=== PATIENT | male | born 2000 | race Caucasian/White ===

== ENCOUNTER 2018-12-18 21:16 | Inpatient (IN) ==
[2018-12-18] MEDS ORDERED: SODIUM CHLORIDE 0.9% 1000ML 1,000 ML IV SCH (22:30)
--- NOTE | 2018-12-18 22:34 | XRay Report ---
XR chest 1V portable CLINICAL HISTORY: 18 years-old Male presenting with Pt c/o fever. TECHNIQUE: Portable supine AP view of the chest was obtained. COMPARISON: 05/18/2018. FINDINGS: Cardiomediastinal silhouette normal. Lungs and pleural spaces clear. Osseous structures normal. IMPRESSION: 1. No acute cardiopulmonary disease. Electronically signed by: Jean Elizabeth M.D. 12/18/2018 10:33 PM
[2018-12-18 22:48] LABS: Basophils # (auto) 0.03 K/uL (0-0.2); Basophils % (auto) 0.4 %; Eosinophils # (auto) 0.01 K/uL (0-0.5); Eosinophils % (auto) 0.1 %; Hematocrit (blood only) 44.7 % (42-52); Hemoglobin 15.9 g/dL (14.0-18.0); Immature Granulocytes # (auto) 0.03 K/uL (0.00-0.02); Immature Granulocytes % (auto) 0.4 %; Lymphocytes # (auto) 0.99 K/uL (1.2-3.4); Lymphocytes % (auto) 12.7 %; Mean Corpuscular Hgb Conc 35.6 g/dL (32-36); Mean Corpuscular Volume 84.5 fL (80-100); Mean Platelet Volume 10.1 fL (7.4-10.4); Monocytes # (auto) 1.54 K/uL (0.11-0.59); Monocytes % (auto) 19.7 %; Neutrophils # (auto) 5.21 K/uL (1.4-6.5); Neutrophils % (auto) 66.7 %; Platelet Count 238 K/uL (130-400); RDW Coefficient of Variation 12.7 % (11.5-14.5); RDW Standard Deviation 38.8 fL (36.4-46.3); Red Blood Count 5.29 M/uL (4.7-6.1); White Blood Count 7.81 K/uL (4.8-10.8)
[2018-12-18] MEDS ORDERED: ACETAMINOPHEN 500 MG TAB PO STA (22:58)
[2018-12-18 23:09] LABS: BUN Creatinine Ratio 11.7 (10-20); Calcium 9.4 mg/dl (8.5-10.1); Creatinine Clr Calc Pharmacy 115.5 ml/min; Est GFR (African American) 123.5; Est GFR (Non-African American) 106.6
[2018-12-18] MEDS ORDERED: OSELTAMIVIR PHOSPHATE 75 MG CAP PO STA (23:15)
[2018-12-18 23:16] LABS: Acetaminophen < 2 ug/ml (10-30); Salicylate 2.7 mg/dl (2.8-20)
[2018-12-18 23:20] LABS: Bilirubin,Total 0.4 mg/dl (0.2-1)
[2018-12-18] MEDS ORDERED: ACETAMINOPHEN SOLN 500 MG/15.62 ML UDP PO PRN (23:26)
[2018-12-18 23:36] LABS: Appearance Urine Clear (Clear); Bilirubin Urine Negative (Negative); Blood Urine Negative (Negative); Color Urine Yellow; Glucose Urine UA Negative (Negative); Ketones Urine Negative (Negative); Leukocyte Esterase Urine Negative (Negative); Nitrite Urine Negative (Negative); Protein Urine Negative (Negative); Specific Gravity Urine 1.022 (1.000-1.030); Urobilinogen Urine Negative (Negative); pH Urine 5.5 (4.5-7.5)
[2018-12-18 23:56] LABS: Amphetamines+Metham, Urine Pos (Neg); Barbiturates, Urine Neg (Neg); Benzodiazepine, Urine Neg (Neg); Cocaine, Urine Neg (Neg); MDMA (Ecstacy), Urine Neg (Neg); Methadone, Urine Neg (Neg); Opiate, Urine Neg (Neg); Phencyclidine, Urine Neg (Neg)
[2018-12-19] MEDS ORDERED: LORazepam 1 MG TAB SL STA (00:04)
[2018-12-19] MEDS ORDERED: HALOPERIDOL 5 MG TAB PO STA (00:04)
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
--- NOTE | 2018-12-19 05:41 | Emergency Department Note ---
ED Visit Note ED Physician Sign Out Note: 18 yr old male arrives for evaluation of suicidal ideation and threats as well as a request for detox from his Methamphetamine usage. Initially evaluated by Dr Lewis. Flu positive but felt to be medically clear. He was sedated earlier in the evening. Already received tamiflu. He sleeping stable over night. Does not appear to require LP but given obtundation will defer to earlier evaluations by Dr Lewis. No ability to get placement overnight and thus was signed out to Dr Tom pending further mental health evaluation. Juan R Nugent MD
[2018-12-19] MEDS ORDERED: SODIUM CHLORIDE 0.65% NA SOLN 45 ML (OCEAN) PRN (11:57)
[2018-12-19] MEDS ORDERED: MAGNESIUM HYDROXIDE SUSP 30 ML UDC PO PRN (11:57)
[2018-12-19] MEDS ORDERED: BISMUTH SUBSALICYLATE PER ML OMNICELL CHARGE PO PRN (11:57)
[2018-12-19] MEDS ORDERED: ACETAMINOPHEN 325 MG TAB PO PRN (11:57)
[2018-12-19] MEDS ORDERED: ALUMINUM/MAGNESIUM SUSP 30 ML UDC PO PRN (11:57)
--- NOTE | 2018-12-19 14:37 | Emergency Department Note ---
Entered by Allison Morataya acting as a scribe for Luke Tom DO ED Visit Note I assumed care from Dr. Nugent at the change of shift. 0942: I reviewed the patient's case with Dr. Syed, [facility] psychiatrist. Placement will be attempted, and she will evaluate the patient. Patient remained calm while in the ER. Patient was accepted to the hospital 3 S. on 301. The scribe's documentation has been prepared under my direction and personally reviewed by me in its entirety. I confirm that the note above accurately re flects all work, treatment, procedures, and medical decision making performed by me.
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
[2018-12-19] MEDS ORDERED: IBUPROFEN 600 MG TAB PO PRN (15:06)
[2018-12-19] MEDS: OSELTAMIVIR PHOSPHATE 75 MG CAP PO SCH (21:56)
[2018-12-20] MEDS: OSELTAMIVIR PHOSPHATE 75 MG CAP PO SCH ×2 (08:52→20:28)
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
[2018-12-21] MEDS: OSELTAMIVIR PHOSPHATE 75 MG CAP PO SCH ×2 (09:40→21:15)
--- NOTE | 2018-12-21 13:14 | Psychiatric Progress Note ---
Date of Service December 21, 2018 Impression / Recommendations Impression Pt has been participating in treatment and appears to be adjusting to the milieu. Droplet precautions discontinued as he is now asymptomatic. Today, patient denies homicidality or suicidality and reports his mood is "absolutely good." Will need to coordination discharge planning, which includes housing arrangements. Family meeting scheduled for 12/23, and will discuss housing and any other concerns with father. Given patient's impulsivity with his emotions, and statements of homicidality and suicidality made prior to admission - it is necessary that patient in inpatient treatment until discharge plans can be discussed, as conversation with father has high likelihood of destabilizing the patient and he remains at risk of harm to himself or others during this time. (1) Mood disorder: 12/19 -Gather supplemental information from family - Q 15 min checks for safety - Patient can attend group and individual counseling only if wearing a mask and using good hand hygiene - Family meeting if indicated - Assist the patient to explore healthy coping strategies - Does no meet criteria for major depression and so no recommendations for medications - Safety planning - Aftercare planning 12/20 -Differential includes major depression, substance-induced depression, personality disorder (antisocial traits). -Family meeting with father and grandfather. Reviewed recommendations with them that patient not have access to guns, and that as he has been involuntarily committed, he cannot own, purchase, or possess firearms in the [facility]. 12/21 - Continues to lack criteria to recommend medications - Focus will remain on aftercare and safety planning - Family meeting scheduled for Wednesday (2) Influenza A: 12/19 - MNPR - Airborne precautions - May be out of room if wearing mask and using good hand hygiene 12/20 -Continue symptomatic treatment with ibuprofen, acetaminophen, nasal spray, and Tamiflu. 12/21 - Not symptomatic today, protocol reviewed with clearance to discontinue droplet precautions (3) Methamphetamine abuse: 12/19 - Recommend abstinence - Recommend rehab which he is refusing at this time - Consider OP substance use treatment if willing 12/20 -Patient continues to refuse substance abuse treatment, maintaining that he does not have a problem. He is currently on probation, and if he will sign a release for his p.o., they should be contacted regarding his ongoing substance abuse and refusal of recommendations to get treatment. Inventory Assets Strengths: Has a place to live Needs: To abstain from abusable substances Risk Factors Assessment Male: Yes : Yes Do You Have Access To A Gun?: No Health Problems: Yes Mental Health Diagnoses: No Substance Use Disorders: Yes Previous Attempt: Yes Family History of Suicide: No Previous Psychiatric Hospitalization: No Smoker: Yes Protective Factors Assessment : No Responsible for Young Children: No Employed: No (unemployed past 6 months) Stable Relationships: No Supportive Family: Yes Interval History Identifying Information EULALIA MEYERS is a 18-year-old single male who lives in [place] with his father, denies past psychiatric history, and was admitted to our unit on 12/19/2018 a 302 involuntary commitment after making suicidal and homicidal statements to his parents. His urine drug screen in the ER was positive for amphetamine/methamphetamine and marijuana, and he reported intranasal use of methamphetamine, and initially requested detox. Chief Complaint "I am absolutely good. I just found out I'll probably be leaving in a few days". Review of Systems Notes Constitutional: denies ongoing flu symptoms Cardiovascular: denied Respiratory: denied Gastrointestinal: denied Neurological: denied Psychiatric: denies symptoms other than stated above Total of at least 10 systems reviewed, pertinent positives as above and in HPI. Sleep Information Total Hours of Sleep: 10.75 Sleep Comments: pt given vistaril per rn. pt on q-15 minute checks Meal Information Percent Meal Consumed - Breakfast: 100 Percent Meal Consumed - Lunch: 100 Percent Meal Consumed - Dinner: 100 Subjective Subjective Patient was seen & assessed and interval progress reviewed with Treatment Team. Staff report that the patient is unsure about living arrangements following discharge, as it appears his desired plan is not necessarily agreed upon by his family. Pt is scheduled for a family meeting with his parents on 12/23. Pt was seen today to assess progress since admission. Pt states he is doing very well today, stating "it was a little weird being here at first, I wasn't happy, but I warmed up." Pt states that his mood has been generally stable and he denies SI. We discussed his desire for housing arrangements and he states, "I think I'm living with my dad so I can have access to my car and my cat." Pt is not particularly anxious about his family meeting, stating his is flexible with whatever his parent's recommendations or restrictions may be. Physically, he is feeling better with regard to flu symptoms. We received confirmation that droplet precautions can be discontinued and the patient states he is very pleased about this. Physical Exam Psychiatric Orientation: alert and cooperative Apperance: appropriately dressed and + disheveled (malodorous) Eye Contact: good eye contact Motor Behavior: no abnormal motor movements Speech: normal rate/rhythm/volume of speech Affect: euthymic affect Mood: no depressed mood and no anxious mood "absolutely good" Thought Process: goal directed thought process Thought Content: reality based without delusions Suicidal Thoughts: denies suicidal thoughts Homicidal Thoughts: denies homicidal thoughts Hallucinations: no auditory hallucinations and no visual hallucinations Cognition: recent memory grossly intact, remote memory grossly intact, attention grossly intact and language grossly intact Estimated Intelligence: average estimated intelligence Insight: + limited insight Judgement: + limited judgement Vital Signs (Past 24 Hours) Last Vital Signs Temp 36.6 C 12/21/18 06:49 Pulse 86 12/21/18 06:50 Resp 16 12/21/18 06:49 BP 120/78 12/21/18 06:50 Pulse Ox 97 12/19/18 16:35 Results & Data Current Inpatient Medications Current Inpatient Medications: Current Inpatient Medications Acetaminophen (Tylenol) 1,000 mg PO Q6H PRN PRN Reason: Fever Stop: 01/17/19 23:25 Acetaminophen (Tylenol) 650 mg PO Q4H PRN PRN Reason: Headache or Minor Fever Stop: 01/18/19 11:56 Al Hydrox/Mg Hydrox/Simethicone (Maalox) 30 ml PO Q4H PRN PRN Reason: GI Upset Stop: 01/18/19 11:56 Bismuth Subsalicylate (Kaopectate) 15 ml PO PRN PRN PRN Reason: Loose Stool Stop: 01/18/19 11:56 Hydroxyzine HCl (Vistaril) 25 mg PO Q4H PRN PRN Reason: Anxiety Stop: 01/18/19 11:56 Hydroxyzine HCl (Vistaril) 50 mg PO HSZ PRN PRN Reason: Insomnia Stop: 01/18/19 11:56 Last Admin: 12/19/18 22:47 Dose: 50 mg Documented by: Ibuprofen (Motrin) 600 mg PO Q6H PRN PRN Reason: pain/fever Stop: 01/18/19 15:05 Last Admin: 12/19/18 21:56 Dose: 600 mg Documented by: Magnesium Hydroxide (Milk Of Magnesia) 30 ml PO DAILY PRN PRN Reason: Heartburn Stop: 01/18/19 11:56 Oseltamivir Phosphate (Tamiflu) 75 mg PO BID ANGELINA; Protocol Stop: 12/24/18 20:59 Last Admin: 12/21/18 09:40 Dose: 75 mg Documented by: Sodium Chloride (Stark Nasal) 1 - 2 sprays NA PRN PRN PRN Reason: Nasal Dryness/Congestion Stop: 01/18/19 11:56 Post Discharge Appointments Primary Care Physician Name Of Family Doctor: Dr. Thomas Giordano Therapist Name of Therapist: None Correspondence Clerk Name of Correspondence Clerk: None CPT Code CPT Code 50169
[2018-12-21 18:53] LABS: Amphetamine Urine, Confirm 455 NG/ML (CUTOF=250); Marijuana Quant, GCMS Urine 42 NG/ML (CUTOFF=5)
[2018-12-22] MEDS: OSELTAMIVIR PHOSPHATE 75 MG CAP PO SCH ×2 (08:57→21:10)
--- NOTE | 2018-12-22 19:35 | Psychiatric Progress Note ---
Date of Service December 22, 2018 Impression / Recommendations Impression Pt continues superficial cooperation on the unit, though does not appear to be overly invested in treatment. Will continue MNPR due to ongoing flu symptomatology. Observed continued coughing on unit. Family meeting scheduled with father and grandfather tomorrow at 12:00. Barring any complications, discharge is likely, as patient is nearing the end of his 302 involuntary commitment. Given history of behaviors, ongoing treatment is necessary until aftercare and safety planning is completed during family meeting - especially as it is unclear where patient will be living at discharge. (1) Mood disorder: 12/19 -Gather supplemental information from family - Q 15 min checks for safety - Patient can attend group and individual counseling only if wearing a mask and using good hand hygiene - Family meeting if indicated - Assist the patient to explore healthy coping strategies - Does no meet criteria for major depression and so no recommendations for medications - Safety planning - Aftercare planning 12/20 -Differential includes major depression, substance-induced depression, personality disorder (antisocial traits). -Family meeting with father and grandfather. Reviewed recommendations with them that patient not have access to guns, and that as he has been involuntarily committed, he cannot own, purchase, or possess firearms in the state of [facility]. 12/21 - Continues to lack criteria to recommend medications - Focus will remain on aftercare and safety planning - Family meeting scheduled for Friday 12/22 - As above (2) Influenza A: 12/19 - MNPR - Airborne precautions - May be out of room if wearing mask and using good hand hygiene 12/20 -Continue symptomatic treatment with ibuprofen, acetaminophen, nasal spray, and Tamiflu. 12/21 - Not symptomatic today, protocol reviewed with clearance to discontinue droplet precautions 12/22 - Continue MNPR due to ongoing coughing/sneezing - Continue to encourage good hand hygiene (3) Methamphetamine abuse: 12/19 - Recommend abstinence - Recommend rehab which he is refusing at this time - Consider OP substance use treatment if willing 12/20 -Patient continues to refuse substance abuse treatment, maintaining that he does not have a problem. He is currently on probation, and if he will sign a release for his p.o., they should be contacted regarding his ongoing substance abuse and refusal of recommendations to get treatment. Inventory Assets Strengths: Has a place to live Needs: To abstain from abusable substances Risk Factors Assessment Male: Yes : Yes Do You Have Access To A Gun?: No Health Problems: Yes Mental Health Diagnoses: No Substance Use Disorders: Yes Previous Attempt: Yes Family History of Suicide: No Previous Psychiatric Hospitalization: No Smoker: Yes Protective Factors Assessment : No Responsible for Young Children: No Employed: No (unemployed past 6 months) Stable Relationships: No Supportive Family: Yes Interval History Identifying Information EULALIA MEYERS is a 18-year-old single male who lives in [place] with his father, denies past psychiatric history, and was admitted to our unit on 12/19/2018 a 302 involuntary commitment after making suicidal and homicidal statements to his parents. His urine drug screen in the ER was positive for amphetamine/methamphetamine and marijuana, and he reported intranasal use of methamphetamine, and initially requested detox. Chief Complaint "I'm feeling so good". Review of Systems Notes Constitutional: denied Cardiovascular: denied Respiratory: denied Gastrointestinal: denied Neurological: denied Psychiatric: denies symptoms other than stated above Total of at least 10 systems reviewed, pertinent positives as above and in HPI. Sleep Information Total Hours of Sleep: 7.25 Sleep Comments: pt given vistaril per rn. pt on q-15 minute checks Meal Information Percent Meal Consumed - Breakfast: 100 Percent Meal Consumed - Lunch: 100 Percent Meal Consumed - Dinner: 100 Subjective Subjective Patient was seen & assessed and interval progress reviewed with Nursing. Staff report the patient has continued to be superficially pleasant on the unit. Family meeting scheduled with his father and grandfather Wednesday at 12:00. 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 Pt was seen today to assess progress since admission. Pt states he is doing well. He has been attending groups, but states, "I've been bored." He denies suicidality and somewhat cynically states, "Never, I love my life!" Pt denies any present concerns or anxiety regarding his meeting tomorrow. He denies ongoing flu symptoms, though staff has observed continued coughing. Physical Exam Psychiatric Orientation: alert, oriented x 3 and cooperative Apperance: appropriately dressed and + disheveled (malodorous) Eye Contact: good eye contact Motor Behavior: steady gait and station and no abnormal motor movements Speech: normal rate/rhythm/volume of speech Affect: euthymic affect Mood: no depressed mood and no anxious mood "I'm so good" Thought Process: goal directed thought process and clear/coherent thought process Thought Content: reality based without delusions Suicidal Thoughts: denies suicidal thoughts Homicidal Thoughts: denies homicidal thoughts Hallucinations: no auditory hallucinations and no visual hallucinations Cognition: recent memory grossly intact, remote memory grossly intact, attention grossly intact and language grossly intact Estimated Intelligence: average estimated intelligence Insight: + fair insight Judgement: + fair judgement Vital Signs (Past 24 Hours) Last Vital Signs Temp 36.8 C 12/22/18 06:00 Pulse 71 12/22/18 06:00 Resp 16 12/22/18 06:00 BP 110/70 12/22/18 06:00 Pulse Ox 97 12/19/18 16:35 Results & Data Current Inpatient Medications Current Inpatient Medications: Current Inpatient Medications Acetaminophen (Tylenol) 1,000 mg PO Q6H PRN PRN Reason: Fever Stop: 01/17/19 23:25 Acetaminophen (Tylenol) 650 mg PO Q4H PRN PRN Reason: Headache or Minor Fever Stop: 01/18/19 11:56 Al Hydrox/Mg Hydrox/Simethicone (Maalox) 30 ml PO Q4H PRN PRN Reason: GI Upset Stop: 01/18/19 11:56 Bismuth Subsalicylate (Kaopectate) 15 ml PO PRN PRN PRN Reason: Loose Stool Stop: 01/18/19 11:56 Hydroxyzine HCl (Vistaril) 25 mg PO Q4H PRN PRN Reason: Anxiety Stop: 01/18/19 11:56 Hydroxyzine HCl (Vistaril) 50 mg PO HSZ PRN PRN Reason: Insomnia Stop: 01/18/19 11:56 Last Admin: 12/19/18 22:47 Dose: 50 mg Documented by: Ibuprofen (Motrin) 600 mg PO Q6H PRN PRN Reason: pain/fever Stop: 01/18/19 15:05 Last Admin: 12/19/18 21:56 Dose: 600 mg Documented by: Magnesium Hydroxide (Milk Of Magnesia) 30 ml PO DAILY PRN PRN Reason: Heartburn Stop: 01/18/19 11:56 Oseltamivir Phosphate (Tamiflu) 75 mg PO BID ANGELINA; Protocol Stop: 12/24/18 20:59 Last Admin: 12/22/18 08:57 Dose: 75 mg Documented by: Sodium Chloride ([place] Nasal) 1 - 2 sprays NA PRN PRN PRN Reason: Nasal Dryness/Congestion Stop: 01/18/19 11:56 Post Discharge Appointments Primary Care Physician Name Of Family Doctor: Dr. Thomas Giordano Psychiatrist Name of Psychiatrist: [facility] Date of Appointment with Psychiatrist: 12/26/18 Time of Appointment with Psychiatrist: 2:30 pm Psychiatric Appointment Comment: Intake appointment for Psychiatrist and Therapist with Constance Darden Name of Therapist: [facility] Pattern Clerk Name of Pattern Clerk: None CPT Code CPT Code 55672
[2018-12-23] MEDS: OSELTAMIVIR PHOSPHATE 75 MG CAP PO SCH (09:02)
--- NOTE | 2018-12-23 09:33 | Discharge Summary ---
Date of Service December 23, 2018 History of Present Illness The patient is a 18-year-old male who initially presented to the emergency department requesting drug rehab. He admits he has been smoking meth regularly. He later went on to deny that he wanted any help saying that it was his parents idea to come for help. Apparently the parents reported that he had been making suicidal and homicidal statements and they were concerned for his safety. A 302 petitioner statement was completed by his father saying that on December 16 he put a gun to his head and threatened to kill himself and his father, on December 17 threatened to kill everyone in the house and himself using a knife, on December 18 tried to OD on pills and threatened everyone in the home. While in the emergency department he was positive for influenza. Multiple referrals were made to other facilities as we did not have a bed at the time, but was denied. We had a bed come available today and he was admitted involuntarily. At the time I see the patient he is lying in bed with a mask on. He is alert and cooperative with the interview. He contends that he blacks out when he does drugs and "says stupid shift" like it making statements of homicidality and suicidality. He believes that the statements are impulsive, and related to untreated ADHD. He denies that he has been feeling depressed. He indicates that his sleep is "pretty good" getting 8 hours per night. His appetite is good and denies weight changes. He denies anxiety or worry. He denies self- injurious behaviors. He does endorse the fact that his thoughts go "way too fast" and he has difficulty completing tasks. He denies ever having had any auditory or visual hallucinations. He denies any discrete episodes of euphoric mood, sleeplessness or pleasure seeking behaviors that would be congruent with bipolar disorder. He admits that he has been smoking meth 2-3 times per week but last week did not have any. He smokes marijuana generally on the first of the month. He denies other drugs and UDS is positive for amphetamines and cannabis only. He does not believe he needs to be in the hospital, denying any mental health needs. He does not want to go to rehab for his substance use, and wants to get out as soon as possible. Physical Exam Psychiatric Orientation: oriented x 3 Apperance: appropriately groomed Eye Contact: + fair eye contact Motor Behavior: steady gait and station and no abnormal motor movements Speech: normal rate/rhythm/volume of speech Affect: euthymic affect "Good. Determined [to not use drugs]." Thought Content: reality based without delusions and + self deprecation Suicidal Thoughts: denies suicidal thoughts Homicidal Thoughts: denies homicidal thoughts Hallucinations: no auditory hallucinations Cognition: recent memory grossly intact and remote memory grossly intact Some ongoing issues with attention and concentration. Estimated Intelligence: + above average estimated intelligence Insight: + limited insight Judgement: + fair judgement Insists that he's "not addicted" to methamphetamine, despite daily use and continued use despite negative social and legal consequences. Vital Signs (Past 24 Hours) Last Vital Signs Temp 36.7 C 12/23/18 06:00 Pulse 64 12/23/18 07:16 Resp 16 12/23/18 06:00 BP 116/75 12/23/18 07:16 Pulse Ox 97 12/19/18 16:35 Principal Diagnosis Adjustment Disorder (complicated by amphetamine and marijuana abuse) Psychiatric Data During the course of hospitalization the patient was offered various modalities of psychiatric treatment including individual, group, activity and milieu therapies. The patient's participation initially was limited, but this time he became more interactive and his participation in therapy was more robust. The patient indicates that he learned several things in therapy, including ways of improving his self-esteem and learning better individual coping strategies. He is also able to connect to the relationship between low self-esteem, boredom, lack of occupation, and drug misuse. The patient basically identifies the admission as being "to detoxify me from methamphetamine," it continues to say that he does not believe that he is "addicted" to methamphetamine and that, for him, it is not "addictive." He continued to have difficulty with the concept of psychological addiction, and with the idea of addiction as being related to persistent use despite clear negative social, legal, familial, and vocational consequences. The patient repeatedly reported that he had simply said that he was suicidal (and homicidal" as a strategy to get his family "off [his] back," because he was physically ill with influenza and the family was insisting that he was simply experiencing withdrawal from methamphetamine and wanted him to get out of bed and help his uncle Coppersmith Apprentice a cow. He tells me that he was not genuinely suicidal, nor was he homicidalalthough he acknowledges being angry at his family for not believing him and trying to make him get out of bed when he was ill. (It was confirmed that he did, in fact, have influenza) patient said that the next day he had further arguments with his family regarding his use of methamphetamines and other drugs (primarily marijuana) and he was convinced to "get help." He had not anticipated admission, however. Nevertheless, he does say that he feels that his hospitalization was helpful. Further, the patient tells me that he is looking forward to beginning treatment with an outpatient counselor. His strategy to maintain abstinence is simply to avoid contact with the person that supplied him with methamphetamine, and he notes that that suppl ier lives some distance away from him in another county and he is unlikely to encounter him without it being intentional. Day of Discharge Assessment On the day of discharge, the patient describes his mood is "good," and rates it as "8 out of 10." He also reports that he feels hopeful and "determined." He later explained that "determined means I am determined not to use." The patient's affect is consistent with his mood. There is some inappropriate laughter, for example when telling me that he had threatened to "kill" his father, and he explains that he is laughing out of embarrassment. The patient's thought processes are tight and goal oriented. There is no evidence of any delusional material and the patient's thought content. The patient denies that he is experienced any perceptual disturbances, and there has been no evidence during the hospitalization to suggest response to internal stimuli. The patient also reports that he is not suicidal, has never been suicidal, and cannot imagine himself ever becoming suicidal. He does acknowledge that he frequently gets into physical altercations, but denies any homicidal ideation and attributes the fights to the fact that "people do not like me and I get picked on." The patient set several goals for the future, including participation in outpatient treatment, abstinence from drugs "to prove you wrong" and finding a job in order to keep himself more occupied. Transition of Care Transition Of Care Record: was reviewed with the patient Advance Directives Advance Directives Information Provided: Yes Advance Directives: No Mental Health Advance Directive: No Advance Directives on File: No Living Will: No Power of Wrapping Machine Helper: No Advance Directives Reason:: Declines as Mental Health Visit. Risk Factors Assessment Male: Yes : Yes Do You Have Access To A Gun?: No Health Problems: Yes Mental Health Diagnoses: No Substance Use Disorders: Yes Previous Attempt: Yes Previous Attempt; Highly Lethal: No Previous Attempt; Planned: No Previous Attempt; Didn't Tell Anyone: No Family History of Suicide: No Previous Psychiatric Hospitalization: No Smoker: Yes Protective Factors Assessment : No Responsible for Young Children: No Employed: No (unemployed past 6 months) Stable Relationships: No Supportive Family: Yes Tobacco Cessation at Discharge Tobacco Cessation Medication Prescribed at Discharge: Not Applicable/Non-Smoker Total Time Total Time Spent: Greater Than 30 Minutes Total Time Includes: Examination of the patient, Discharge Planning and Medication Reconciliation Discharge Data Consultations 12/19/18 07:44 Consult Psychiatry Stat Lab Results 12/18/18 12/18/18 12/18/18 22:30 22:33 22:33 WBC 7.81 RBC 5.29 Hgb 15.9 Hct 44.7 MCV 84.5 MCH 30.1 MCHC 35.6 RDW Std Deviation 38.8 RDW Coeff of [place] 12.7 Plt Count 238 MPV 10.1 Immature Gran % (Auto) 0.4 Neut % (Auto) 66.7 Lymph % (Auto) 12.7 [place] % (Auto) 19.7 Eos % (Auto) 0.1 Baso % (Auto) 0.4 Immature Gran # (Auto) 0.03 H Neut # (Auto) 5.21 Lymph # (Auto) 0.99 L [place] # (Auto) 1.54 H Eos # (Auto) 0.01 Baso # (Auto) 0.03 Sodium 133 L Potassium 4.0 Chloride 100 Carbon Dioxide 27 Anion Gap 6.0 BUN 12 Creatinine 1.01 Est Cr Clr Drug Dosing 115.5 Est GFR ( Amer) 123.5 Est GFR (Non-Af Amer) 106.6 BUN/Creatinine Ratio 11.7 Glucose 96 Calcium 9.4 Total Bilirubin 0.4 AST 40 H ALT 65 Alkaline Phosphatase 86 Total Protein 8.0 Albumin 4.0 Globulin 4.0 Albumin/Globulin Ratio 1.0 TSH 0.348 Urine Color Urine Appearance Urine pH Ur Specific [place] Urine Protein Urine Glucose (UA) Urine Ketones Urine Blood Urine Nitrite Urine Bilirubin Urine Urobilinogen Ur Leukocyte Esterase Salicylates Urine Opiates Screen Ur Methadone, Qual Acetaminophen Urine Barbiturates Ur Phencyclidine (PCP) U Amphetamines Confirm U Amphetamin/Meth Scrn U Methamphetamin Confrm MDMA (Ecstasy) Screen U Benzodiazepines Scrn Ur Cocaine Metabolite U Marijuana (THC) Screen U Marijuana THC Carboxy Ethyl Alcohol mg/dL Influenza Type A Ag Pos for Influ A A* Influenza Type B Ag Neg for Influ B 12/18/18 12/18/18 12/18/18 22:33 22:40 23:16 WBC RBC Hgb Hct MCV MCH MCHC RDW Std Deviation RDW Coeff of [place] Plt Count MPV Immature Gran % (Auto) Neut % (Auto) Lymph % (Auto) [place] % (Auto) Eos % (Auto) Baso % (Auto) Immature Gran # (Auto) Neut # (Auto) Lymph # (Auto) [place] # (Auto) Eos # (Auto) Baso # (Auto) Sodium Potassium Chloride Carbon Dioxide Anion Gap BUN Creatinine Est Cr Clr Drug Dosing Est GFR ( Amer) Est GFR (Non-Af Amer) BUN/Creatinine Ratio Glucose Calcium Total Bilirubin AST ALT Alkaline Phosphatase Total Protein Albumin Globulin Albumin/Globulin Ratio TSH Urine Color Urine Appearance Urine pH Ur Specific [place] Urine Protein Urine Glucose (UA) Urine Ketones Urine Blood Urine Nitrite Urine Bilirubin Urine Urobilinogen Ur Leukocyte Esterase Salicylates 2.7 L Urine Opiates Screen Neg Ur Methadone, Qual Neg Acetaminophen < 2 L Urine Barbiturates Neg Ur Phencyclidine (PCP) Neg U Amphetamines Confirm U Amphetamin/Meth Scrn Pos H U Methamphetamin Confrm MDMA (Ecstasy) Screen Neg U Benzodiazepines Scrn Neg Ur Cocaine Metabolite Neg U Marijuana (THC) Screen Pos H U Marijuana THC Carboxy Ethyl Alcohol mg/dL < 3.0 Influenza Type A Ag Influenza Type B Ag 12/18/18 12/18/18 23:16 23:16 WBC RBC Hgb Hct MCV MCH MCHC RDW Std Deviation RDW Coeff of [place] Plt Count MPV Immature Gran % (Auto) Neut % (Auto) Lymph % (Auto) [place] % (Auto) Eos % (Auto) Baso % (Auto) Immature Gran # (Auto) Neut # (Auto) Lymph # (Auto) [place] # (Auto) Eos # (Auto) Baso # (Auto) Sodium Potassium Chloride Carbon Dioxide Anion Gap BUN Creatinine Est Cr Clr Drug Dosing Est GFR ( Amer) Est GFR (Non-Af Amer) BUN/Creatinine Ratio Glucose Calcium Total Bilirubin AST ALT Alkaline Phosphatase Total Protein Albumin Globulin Albumin/Globulin Ratio TSH Urine Color Yellow Urine Appearance Clear Urine pH 5.5 Ur Specific [place] 1.022 Urine Protein Negative Urine Glucose (UA) Negative Urine Ketones Negative Urine Blood Negative Urine Nitrite Negative Urine Bilirubin Negative Urine Urobilinogen Negative Ur Leukocyte Esterase Negative Salicylates Urine Opiates Screen Ur Methadone, Qual Acetaminophen Urine Barbiturates Ur Phencyclidine (PCP) U Amphetamines Confirm 455 A U Amphetamin/Meth Scrn U Methamphetamin Confrm 799 A MDMA (Ecstasy) Screen U Benzodiazepines Scrn Ur Cocaine Metabolite U Marijuana (THC) Screen U Marijuana THC Carboxy 42 A Ethyl Alcohol mg/dL Influenza Type A Ag Influenza Type B Ag Hospital Course (1) Mood disorder: 12/19 -Gather supplemental information from family - Q 15 min checks for safety - Patient can attend group and individual counseling only if wearing a mask and using good hand hygiene - Family meeting if indicated - Assist the patient to explore healthy coping strategies - Does no meet criteria for major depression and so no recommendations for medications - Safety planning - Aftercare planning 12/20 -Differential includes major depression, substance-induced depression, personality disorder (antisocial traits). -Family meeting with father and grandfather. Reviewed recommendations with them that patient not have access to guns, and that as he has been involuntarily committed, he cannot own, purchase, or possess firearms in the [facility]. 12/21 - Continues to lack criteria to recommend medications - Focus will remain on aftercare and safety planning - Family meeting scheduled for Friday 12/22 - As above 12/23 - Self esteem issues, poor coping strategies, legal difficulties, and family conflicts are issues to which the patient is having difficulty adjusting. - These were explored during the hospitalization and should be a focus of treatment upon discharge -Family meeting scheduled today. (2) Influenza A: 12/19 - MNPR - Airborne precautions - May be out of room if wearing mask and using good hand hygiene 12/20 -Continue symptomatic treatment with ibuprofen, acetaminophen, nasal spray, and Tamiflu. 12/21 - Not symptomatic today, protocol reviewed with clearance to discontinue droplet precautions 12/22 - Continue MNPR due to ongoing coughing/sneezing - Continue to encourage good hand hygiene 12/23 -Continue MNPR to complete course at the end of the day tomorrow. (3) Methamphetamine abuse: 12/19 - Recommend abstinence - Recommend rehab which he is refusing at this time - Consider OP substance use treatment if willing 12/20 -Patient continues to refuse substance abuse treatment, maintaining that he does not have a problem. He is currently on probation, and if he will sign a release for his p.o., they should be contacted regarding his ongoing substance abuse and refusal of recommendations to get treatment. 12/23 -Further discussions with the patient today at appears that the patient believes that he is not "addicted" to methamphetamine because he does not experience withdrawal symptoms. I attempted to educate him regarding other factors that can help us determine addiction, and those include continued use despite negative consequencesand the patient has had multiple negative consequences directly associated with his ongoing use of drugs. The patient tells us that instead of participating in treatment or self-help groups (as recommended) he plans to use his determination was a way of proving everybody wrong. He also does have at least one good coping strategy, and that will be to avoid traveling to the town where he is able to acquire methamphetamine. Post Discharge Appointments Primary Care Physician Name Of Family Doctor: Dr. Thomas Giordano Psychiatrist Name of Psychiatrist: [facility] Psychiatrist's Date of Appointment with Psychiatrist: 12/26/18 Time of Appointment with Psychiatrist: 2:30 pm Psychiatric Appointment Comment: Intake appointment for Psychiatrist and Therapist with [place] Therapist Name of Therapist: [facility] Hvac Operations Technician Name of Hvac Operations Technician: None Smoking Cessation Counseling Tobacco Cessation Medication Prescribed at Discharge: Not Applicable/Non-Smoker Discharge Plan Discharge Items Patient Disposition: Home - Self-Care Reason For Visit: DEPRESSION Discharge Diagnosis: Adjustment Disorder, Mixed. Discharge Goals: Improve disease control, Improve function, Increase independence and Learn about illness Specific Goals: Abstain from use of methamphetamine and other drugs of abuse. Activity: Resume your previous activity Non-emergency contact: Therapist Call non-emergency contact if: your symptoms worsen Follow-up/Referrals: PCP,NO [Primary Care Provider] - Diet: Regular Addtl Provider Instructions: Find ways of structuring your free time, such as by getting a job and developing more interests and hobbies. Use individual counseling and self-help groups such as Narcotics Anonymous to learn more about addiction (both physical and psychological) and also learn more about what triggers use of drugs in your life. Prescriptions: New oseltamivir [Tamiflu] 75 mg Capsule 75 mg PO BID 1 Days Qty: 2 RF: 0 No Action No Known Home Medications RF: 0 Stand-Alone Forms: [facility], [facility] Discharge Orders: Discharge Order (Routine); Ordered 12/23/18 Ordered By: Raj Blanca Admission Data Admit Date/Time: 12/19/18 11:57 Attending Provider: Madeline Syed Admit Provider: Madeline Syed Primary Care Provider: PCP,NO Other Providers: Madeline Syed Service: Psychiatry Other Pending Studies at Discharge: No
== END 2018-12-23 13:10 | disposition home or self-care (01) | DRG 882 ==
LOC: ED 21:16 → 3S 12-19 11:57